=== PATIENT | female | born 1940 | race Caucasian/White ===

== ENCOUNTER 2021-08-03 10:19 | Outpatient (CLI) | payer MEDICARE, OTHER ==
--- NOTE | 2021-08-03 10:46 | XRAY Report ---
PROCEDURE: Chest 2 View X-Ray INDICATIONS: TIGHT CHEST TECHNIQUE: 2 view(s) of the chest. COMPARISON: None. FINDINGS: SUPPORT DEVICES: None. LUNGS/PLEURA: No focal consolidation, pleural effusion or space-occupying pneumothorax. MEDIASTINUM: The cardiomediastinal silhouette is within normal limits. BONES/SOFT TISSUES: No acute abnormality. Elevation of the right diaphragm. IMPRESSION: 1.No acute cardiopulmonary abnormality. Reviewed by: Rah Sarmiento MD on 08/03/2021 10:45 AM [facility] Approved by: Rah Sarmiento MD on 08/03/2021 10:45 AM [facility] Station ID: [id number]
== END 2021-08-03 10:20 | disposition home or self-care (01) ==
LOC: DI.S 10:19
PROVIDERS: ATTEND Nurse Practitioner Family
DX: R07.89 Other chest pain (principal)

== ENCOUNTER 2023-05-03 18:45 | Outpatient (CLI) | payer MEDICARE, OTHER ==
--- NOTE | 2023-05-04 17:53 | Ultrasound Report ---
PROCEDURE: Duplex Ext Veins Right INDICATIONS: RIGHT LEG PAIN TECHNIQUE: Real-time imaging, as well as color and pulse Doppler interrogation, were performed of the lower extr emity deep veins from the inguinal ligament to the popliteal fossa. Attempted visualization of the ca lf veins was performed. COMPARISON: None. FINDINGS: The deep veins are normally compressible, and free of intraluminal thrombus. Color and pu lse Doppler demonstrate normal phasic intraluminal flow. There is normal augmentation response to di stal compression maneuver. IMPRESSION: No deep venous thrombosis of the visualized lower extremity. Reviewed by: Mia Arellano MD on 05/04/2023 5:51 PM PST Approved by: Mia Arellano MD on 05/04/2023 5:51 PM PST Station ID: [id number]
== END 2023-05-03 18:46 | disposition home or self-care (01) ==
LOC: DI 18:45
PROVIDERS: ATTEND Physician Assistant
DX: M79.604 Pain in right leg (principal)

== ENCOUNTER 2023-12-03 09:51 | Outpatient (CLI) | payer MEDICARE, OTHER ==
--- NOTE | 2023-12-03 16:22 | XRAY Report ---
PROCEDURE: Hip w/Pelvis 2-3V RT INDICATIONS: RIGHT HIP PAIN TECHNIQUE: views of the hip were acquired. COMPARISON: None. FINDINGS: Bones: No fractures or dislocations. No suspicious bony lesions. Moderate bilateral degenerative joint space narrowing. No erosions. Degenerative changes are present within the lower lumbar spine. Soft tissues: No suspicious soft tissue calcifications or masses. IMPRESSION: Moderate bilateral hip arthritic change. Reviewed by: Mia Arellano MD on 12/03/2023 4:21 PM PDT Approved by: Mia Arellano MD on 12/03/2023 4:21 PM PDT Station ID: [id number]
--- NOTE | 2023-12-03 16:23 | XRAY Report ---
PROCEDURE: Lumbar Spine 2-3V INDICATIONS: RIGHT SIDED SCIATICA TECHNIQUE: 3 views of the lumbar spine were acquired. COMPARISON: None. FINDINGS: Surgical change: None. Bones: 5 [id number] vertebrae are present. Trace anterolisthesis of L4 on L5, trace retrolisthe sis of L2 on L3, L3 on L4. Multilevel moderate degenerative disc and foraminal narrowing most severe at L4-5 and L5-S1. No vertebral body compression fractures. No suspicious bony lesions. Soft tissues: Overlying bowel gas pattern is normal. No suspicious soft tissue calcifications. IMPRESSION: Degenerative changes most severe at L4-5, L5-S1. Reviewed by: Mia Arellano MD on 12/03/2023 4:22 PM PDT Approved by: Mia Arellano MD on 12/03/2023 4:22 PM PDT Station ID: [id number]
== END 2023-12-03 09:52 | disposition home or self-care (01) ==
LOC: DI 09:51
PROVIDERS: ATTEND Nurse Practitioner Family
DX: M16.0 Bilateral primary osteoarthritis of hip (principal); M47.816 Spondylosis without myelopathy or radiculopathy, lumbar region; M47.817 Spondylosis without myelopathy or radiculopathy, lumbosacral region

== ENCOUNTER 2023-12-03 10:14 | Emergency (ER) | payer MEDICARE, OTHER ==
[2023-12-03 10:42] VITALS: O2SAT 98
--- NOTE | 2023-12-03 11:35 | ED Physician Documentation ---
PD HPI LOWER EXT INJURY - Stated complaint Stated Complaint: RT LEG PX,SWELLING - Chief complaint Chief Complaint: Ext Problem - History obtained from History obtained from: Patient - History of Present Illness PD HPI LOW EXT INJURY LOCATION: Right, Upper leg Type of injury: Other (vein strpping 2 months ago, with pain medial thigh the past week.). No: Fall, Twist Worsened by: Moving, Palpating Associated symptoms: No: Weakness, Numbness Contributing factors: No: Anticoagulated Recently seen: Surgery (had vein stripping 2 months ago in lower right leg below the knee, and has had some degree of pain around the area of incisions and behind the knee. Behind knee has worsed recently and she is concerned about blood clots. 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[employer] MANAGER: Endometriosis : None HEENT: Chronic hearing loss Psych: None Musculoskeletal: Osteoarthritis Derm: Psoriasis - Past Surgical History Past Surgical History: Yes General: Other /[employer] MANAGER: Hysterectomy - Present Medications Home Medications: Ambulatory Orders Medication Instructions Recorded Confirmed Atorvastatin Calcium 40 mg PO DAILY 12/03/23 12/03/23 Diclofenac Sodium 1% Gel [Voltaren 2 gm TOP QID #50 each 12/03/23 Gel] Meloxicam [Mobic] 7.5 mg PO BID 10 Days #20 tablet 12/03/23 Metoprolol Succinate 100 mg PO DAILY 12/03/23 12/03/23 Pantoprazole [Protonix] 40 mg PO DAILY 12/03/23 12/03/23 Spironolactone [Aldactone] 50 mg PO DAILY 12/03/23 12/03/23 - Allergies Allergies/Adverse Reactions: Allergies Allergy/AdvReac Type Severity Reaction Status Date / Time latex Allergy Rash Verified 12/03/23 10:31 Sulfa (Sulfonamide Allergy Hives Verified 12/03/23 10:31 Antibiotics) - Social History Does the pt smoke?: No Smoking Status: Never smoker Does the pt drink ETOH?: No Does the pt have substance abuse?: No - Immunizations Immunizations are current?: Yes PD ED PE NORMAL - Vitals Vital signs reviewed: Yes - General General: Alert and oriented X 3, No acute distress, Well developed/nourished - Derm Derm: Normal color, Warm and dry, No rash - Extremities Extremities: No edema, Other (popliteal area with tenderness and feeling of linear firmness and mild callor c/w phlebitis. No redness nor swelling in prior surgical area anterolateral knee. No lower calf pain nor swelling. ) - Neuro Neuro: Alert and oriented X 3, No motor deficit, No sensory deficit Results - Rads (name of study) duplex US Relevant Findings:: Prelim report reviewed, Other (US Tech: no DVT. superficial phlebitis seen in popliteal area. ) PD Medical Decision Making - ED course Complexity details: reviewed results (no DVT per US Tech, SVT in popliteal fossa, which is where she has some pain and tenderness, with feeling of superficial phlebitis. ), considered differential, d/w patient Departure - Departure Disposition: Home, Self Care Clinical Impression: Right thigh pain, Superficial thrombophlebitis Condition: Stable Record reviewed to determine appropriate education?: Yes Instructions: ED Phlebitis Superficial Follow-Up: Mignon Vázquez ARNP [Primary Care Provider] - Prescriptions: Meloxicam [Mobic] 7.5 mg PO BID 10 Days #20 tablet Diclofenac Sodium 1% Gel [Voltaren Gel] 2 gm TOP QID #50 each Comments: There were no deep vein blood clots on your ultrasound. They were able to see some superficial veins with small clots on the surface and those are palpable in that area that is tender. This is treated differently than deep vein clots. These are not at risk for propagating to the lungs or such. These will get treated typically with heat to the area to improve blood flow and help soften the small clots in the surface veins. Also some anti-inflammatories both orally and locally can be helpful as well. Use Tylenol every 4-6 hours if needed for additional pains. This should improve over several days to week and resolved. Forms: PCP List Discharge Date/Time: 12/03/23 12:21
--- NOTE | 2023-12-03 11:56 | Ultrasound Report ---
PROCEDURE: Duplex Ext Veins Right INDICATIONS: pain/swelling TECHNIQUE: Real-time imaging, as well as color and pulse Doppler interrogation, were performed of the lower extr emity deep veins from the inguinal ligament to the popliteal fossa. Attempted visualization of the ca lf veins was performed. COMPARISON: DVT ultrasound 05/03/2023 FINDINGS: Technically limited exam due to patient inability to tolerate compression. The deep veins a re normally compressible, and free of intraluminal thrombus. Color and pulse Doppler demonstrate nor mal phasic intraluminal flow. There is normal augmentation response to distal compression maneuver. Superficial venous thrombus is seen in the region of the popliteal fossa. IMPRESSION: 1.No deep venous thrombosis of the visualized lower extremity. 2.Superficial venous thrombus is seen in the region of the popliteal fossa. Reviewed by: Matteo Sauceda MD on 12/03/2023 11:54 AM PDT Approved by: Matteo Sauceda MD on 12/03/2023 11:54 AM PDT Station ID: [id number]
[2023-12-03] MEDS: NAPROXEN 250 MG TABLET PO STA (12:16)
[2023-12-03 12:23] VITALS: BP 140/84
== END 2023-12-03 12:21 | disposition home or self-care (01) ==
LOC: ED 10:14
DX: I80.01 Phlebitis and thrombophlebitis of superficial vessels of right lower extremity (principal); M16.0 Bilateral primary osteoarthritis of hip; M47.816 Spondylosis without myelopathy or radiculopathy, lumbar region; M47.817 Spondylosis without myelopathy or radiculopathy, lumbosacral region
CPT/HCPCS: 72100; 73502; 93971; 99283; 99284; A9270